=== PATIENT | female | born 1975 | race Caucasian/White ===

== ENCOUNTER 2022-02-01 20:56 | Emergency (ER) | payer OTHER ==
[2022-02-01 21:16] VITALS: BP 144/91; PULSE 90; RESP 18; TEMP 97.9; BMI 27.5
[2022-02-01] MEDS ORDERED: ACETAMINOPHEN 325 MG TABLET (FP) PO ONE (22:21)
[2022-02-01] MEDS ORDERED: ACETAMINOPHEN 325 MG TABLET (FP) ONE (22:24)
[2022-02-01 22:42] LABS: BASO % 0.5 % (0-2.0); EOS % 0.9 % (0-4.5); HEMATOCRIT 40.4 % (32.4-45.2); HEMOGLOBIN 13.3 GM/dL (10.7-15.3); LYMPH % 31.5 % (8-40); MCH 29.6 pg (25.7-33.7); MCHC 32.8 g/dl (32.0-36.0); MONO % 5.8 % (3.8-10.2); NEUT % 61.3 % (42.8-82.8); PLATELET COUNT 377 10^3/uL (134-434); RBC 4.49 M/mm3 (3.60-5.2); RDW 13.6 % (11.6-15.6); WHITE BLOOD COUNT 10.5 K/mm3 (4.0-10.0)
[2022-02-01 22:52] LABS: INR 0.96 (0.83-1.09)
[2022-02-01 22:55] LABS: ACTIVATED PTT 32.1 SECONDS (25.2-36.5)
[2022-02-01 23:03] LABS: CALCIUM 9.6 mg/dL (8.5-10.1)
[2022-02-01 23:04] LABS: ALBUMIN 4.2 g/dl (3.4-5.0); BLOOD UREA NITROGEN 15.5 mg/dL (7-18)
[2022-02-01 23:07] LABS: CREATININE 0.8 mg/dL (0.55-1.3)
[2022-02-01 23:09] LABS: BILIRUBIN,TOTAL 0.2 mg/dL (0.2-1)
== END 2022-02-02 00:39 | disposition home or self-care (01) ==
LOC: JER 20:56
DX: M79.621 Pain in right upper arm (principal)
CPT/HCPCS: 36415; 71046-TC-FY; 80053; 84484; 85025; 85610; 85730; 93005; 93010; 99284-25